=== PATIENT | male | born 1990 | race Caucasian/White ===

== ENCOUNTER 2016-08-30 03:37 | Emergency (ER) | payer OTHER ==
--- NOTE | 2016-08-30 04:34 | C.PDOC ---
History Of Present Illness 25 y/o male, with prior hx of sciatica,c/o right sided lower back pain since 6 pm on ; pain radiates to upper right thigh. pt sts he was at the gym earlier and did lower back exercises and heavy lifting, and this was his second day back at gym after some time. pt tried tylenol at home once or twice, with no improvement. denies any bladder or bowel dysfunction, no saddle anesthesia, no weakness, numbness or tingling. denies abdominal pain. nausea. vomiting, fever. chills. Time Seen by Provider: 08/30/16 03:55 Chief Complaint (Nursing): Back Pain History Per: Patient History/Exam Limitations: no limitations Onset/Duration Of Symptoms: Hrs (1), Days Current Symptoms Are (Timing): Worse Quality Of Discomfort: "Pain" Severity: Severe Pain Scale Rating Of: 8 Previous Symptoms: Back Pain Associated Symptoms: denies: Incontinence, New Weakness, New Numbness Exacerbating Factor(s): Turning, Movement, Sitting, Standing Recent travel outside of the [place]: No Past Medical History Reviewed: Historical Data, Nursing Documentation, Vital Signs Vital Signs: Last Vital Signs Temp 98 F 08/30/16 03:45 Pulse 84 08/30/16 03:45 Resp 20 08/30/16 03:45 BP 148/80 08/30/16 03:45 Pulse Ox 97 08/30/16 06:08 - Medical History PMH: Gastritis Denies: Chronic Kidney Disease Surgical History: Appendectomy - [facility] Procedures GROUP PSYCHOTHERAPY (02/08/16) Family History: States: Unknown Family Hx - Social History Hx Tobacco Use: Yes (heavy smoker) Hx Alcohol Use: No Hx Substance Use: No - Immunization History Hx Tetanus Toxoid Vaccination: No Hx Influenza Vaccination: No Hx Pneumococcal Vaccination: No Review Of Systems Constitutional: Negative for: Fever, Chills Cardiovascular: Negative for: Chest Pain, Palpitations Respiratory: Negative for: Cough, Shortness of Breath Gastrointestinal: Negative for: Vomiting, Abdominal Pain Genitourinary: Negative for: Dysuria, Frequency, Incontinence Skin: Negative for: Rash Neurological: Negative for: Weakness, Numbness Physical Exam - Physical Exam Appears: Non-toxic, Other (uncomfortable) Skin: Warm, Dry Head: Atraumatic, Normacephalic Neck: Normal ROM Chest: Symmetrical, No Tenderness Cardiovascular: Rhythm Regular, No Murmur Gastrointestinal/Abdominal: Bowel Sounds, Soft, No Tenderness Rectal: Deferred Back: Normal Inspection, No CVA Tenderness, No Vertebral Tenderness, Decreased ROM, Muscle Spasm (right paraspinal), Paraspinal Tenderness (right lumbar area) , Straight Leg Raising (right) Extremity: Normal ROM, No Tenderness, No Pedal Edema, No Calf Tenderness Pulses: Left Dorsalis Pedis: Normal, Right Dorsalis Pedis: Normal Neurological/Psych: Oriented x3, Normal Speech, Normal Cognition, Normal Cranial Nerves, Normal Motor, Normal Sensation ED Course And Treatment O2 Sat by Pulse Oximetry: 97 Pulse Ox Interpretation: Normal Progress Note: pt still with significant pain after toradol and flexeril. pt able to get out of bed and ambulate. percocet ordered. Reevaluation Time: 04:54 (mildly improved) Medical Decision Making Medical Decision Making: pt with right with lower back pain., with palpable spasm in right lumbar area; will tx with toradol, muscle relaxant and re-evaluate. 500 a, pt still with pain, though walking around ED now. on arrival. pt lay flat on his back and was too uncomfortable to move. percocet ordered. 530 am: pt lying in left lateral decubitus position, knees flexed, appears much more comfortable. will d/c with nsaids and muscle relaxants with clinic f/u. pt reports he is no longer taking psychiatric medications. denies hi, si and ah. Disposition Counseled Patient/Family Regarding: Diagnosis, Need For Followup, Rx Given - Disposition Referrals: [facility] [Outside] [facility] [Outside] Disposition: HOME/ ROUTINE Disposition Time: 05:55 Condition: IMPROVED Additional Instructions: Follow up in medical clinic in next few days. Take medications as prescribed. The muscle relaxants will make you sleepy, so no driving or operating vehicles. Return to ER for any worsening symptoms, Try hot or cold compresses to affected area several times a day. Prescriptions: Cyclobenzaprine [Cyclobenzaprine HCl] 10 mg PO Q8 #9 tab Naproxen 500 mg PO BID #20 tab Instructions: Back Pain (GEN), Back Exercises (ED) Forms: Gen Discharge Inst Wallisian - Clinical Impression Clinical Impression: Sciatica, Muscle spasm of back
[2016-08-30 04:40] VITALS: PULSE 84; RESP 20
[2016-08-30] MEDS ORDERED: Oxycodone/Acetaminophen 5/325 mg Tab PO STA (04:52)
[2016-08-30] MEDS ORDERED: Oxycodone/Acetaminophen 5/325 mg Tab ONE (04:54)
[2016-08-30 06:35] VITALS: BP 136/74; TEMP 97.6; O2SAT 98
== END 2016-08-30 06:33 | disposition home or self-care (01) ==
LOC: C.ER 03:37
DX: M54.41 Lumbago with sciatica, right side (principal); M62.830 Muscle spasm of back
CPT/HCPCS: 96372; 99283; J1885

== ENCOUNTER 2017-01-03 13:56 | Emergency (ER) | payer OTHER ==
[2017-01-03 14:07] VITALS: RESP 18
--- NOTE | 2017-01-03 14:21 | C.PDOC ---
History Of Present Illness 26 Y/O MALE C/O INTERMITTENT EPIGASTRIC PAIN FOR 1 WEEK. REPORTS PAIN HAS BEEN PERSISTENT FOR 3 DAYS. ALSO C/O OCCASIONAL RADIATION OF PAIN TO MID-CHEST AREA. WORSE WHEN EATING. DESCRIBED "BURNING, ACID FEELING". DENIES FEVER, NAUSEA, VOMITING. REPORTS PAST SURGICAL HISTORY: APPENDECTOMY. EXAM NEG Time Seen by Provider: 01/03/17 14:14 Chief Complaint (Nursing): Abdominal Pain History Per: Patient History/Exam Limitations: no limitations Onset/Duration Of Symptoms: Days, Intermittent Episodes Current Symptoms Are (Timing): Still Present Location Of Pain/Discomfort: Epigastric Radiation Of Pain To:: Chest Quality Of Discomfort: Burning, Other ("ACID") Associated Symptoms: denies: Fever, Nausea, Vomiting, Diarrhea Recent travel outside of the [place]: No Past Medical History Reviewed: Historical Data, Nursing Documentation, Vital Signs Vital Signs: Last Vital Signs Temp 98.6 F 01/03/17 14:03 Pulse 88 01/03/17 14:03 Resp 18 01/03/17 14:03 BP 141/92 H 01/03/17 14:03 Pulse Ox 98 01/03/17 14:28 - Medical History PMH: Gastritis Surgical History: Appendectomy - [facility] Procedures GROUP PSYCHOTHERAPY (02/08/16) Family History: States: Unknown Family Hx - Social History Hx Tobacco Use: Yes (heavy smoker) Hx Alcohol Use: No Hx Substance Use: No - Immunization History Hx Tetanus Toxoid Vaccination: No Hx Influenza Vaccination: No Hx Pneumococcal Vaccination: No Review Of Systems Except As Marked, All Systems Reviewed And Found Negative. Constitutional: Negative for: Fever, Chills Cardiovascular: Negative for: Chest Pain Respiratory: Negative for: Cough, Shortness of Breath, Wheezing Gastrointestinal: Positive for: Abdominal Pain. Negative for: Nausea, Vomiting , Diarrhea Skin: Negative for: Rash Neurological: Negative for: Weakness, Numbness Physical Exam - Physical Exam Appears: Non-toxic, No Acute Distress Skin: Normal Color, Warm, Dry Head: Atraumatic, Normacephalic Oral Mucosa: Moist Chest: Symmetrical, No Tenderness Cardiovascular: Rhythm Regular Respiratory: Normal Breath Sounds, No Accessory Muscle Use, No Rales, No Rhonchi , No Wheezing Gastrointestinal/Abdominal: Soft, No Tenderness, No Distention, No Guarding, No Rebound Back: Normal Inspection Extremity: Normal ROM, Capillary Refill (< 2 SEC.) Neurological/Psych: Oriented x3, Normal Speech, Normal Cognition ED Course And Treatment - Laboratory Results Result Diagrams: 01/03/17 14:38 01/03/17 14:38 O2 Sat by Pulse Oximetry: 98 (RA) Pulse Ox Interpretation: Normal Progress - Re-Evaluation Re-evaluation Note: 01/03/17 14:22 MAALOX, , PEPCID, PROTONIX. LABS ORDERED. 01/03/17 15:07 LABS NEG. SX IMPROVE. NO S/S ACUTE ABD. ADVISED NEED FOR GI/PMD FU - Data Reviewed Data Reviewed: Lab, Old records Disposition Counseled Patient/Family Regarding: Studies Performed, Diagnosis, Need For Followup, Rx Given - Disposition Referrals: [facility] [Outside] [facility] [Outside] Karlo Chang MD [Staff Provider] - Disposition: HOME/ ROUTINE Disposition Time: 15:08 Condition: IMPROVED Prescriptions: Famotidine [Pepcid AC] 10 mg PO QN #30 tablet Omeprazole Magnesium [Prilosec Otc] 20 mg PO QN #30 tablet. Instructions: Gas and Bloating (ED) Forms: [facility] (Kazakh), Work Excuse - Clinical Impression Clinical Impression: Abdominal colic - Scribe Statement The provider has reviewed the documentation as recorded by the Scribe SM All medical record entries made by the Scribe were at my direction and personally dictated by me. I have reviewed the chart and agree that the record accurately reflects my personal performance of the history, physical exam, medical decision making, and the department course for this patient. I have also personally directed, reviewed, and agree with the discharge instructions and disposition.
[2017-01-03] MEDS ORDERED: Aluminum Hydroxide/Magnesium Hydroxide Susp (30 mL) PO STA (14:22)
[2017-01-03] MEDS ORDERED: Belladonna-Phenobarbital PO STA (14:22)
[2017-01-03] MEDS ORDERED: Aluminum Hydroxide/Magnesium Hydroxide Susp (30 mL) ONE (14:28)
[2017-01-03] MEDS ORDERED: Belladonna-Phenobarbital ONE (14:28)
[2017-01-03 14:43] LABS: BASO # 0.1 K/uL (0.0-0.2); BASO % 0.7 % (0.0-2.0); EOS # 0.1 K/uL (0.0-0.7); EOS % 0.7 % (0.0-4.0); HEMATOCRIT 40.6 % (35.0-51.0); LYMPH # 2.7 K/uL (1.0-4.3); LYMPH % 23.9 % (20.0-40.0); MEAN CELL VOLUME 75.8 fL (80.0-94.0); MEAN CORPUSCULAR HEMOGLOBIN 25.1 pg (27.0-31.0); MEAN CORPUSCULAR HGB CONC 33.2 g/dL (33.0-37.0); MEAN PLATELET VOLUME 8.5 fL (7.2-11.7); MONO # 0.9 K/uL (0.0-0.8); MONO % 8.5 % (0.0-10.0); RED CELL DISTRIBUTION WIDTH 14.3 % (11.5-14.5); WHITE BLOOD COUNT 11.1 K/uL (4.8-10.8)
[2017-01-03 14:54] LABS: CHLORIDE 103 mmol/L (98-107); SODIUM 140 mmol/L (132-148)
[2017-01-03 14:56] LABS: GFR AFRICAN-AMERICAN > 60
[2017-01-03 14:57] LABS: ALB/GLOB RATIO 1.5 (1.0-2.1); ALKALINE PHOSPHATASE 72 U/L (38-126); ALT/SGPT 44 U/L (21-72); AST/SGOT 28 U/L (17-59); BILIRUBIN,TOTAL 0.4 mg/dL (0.2-1.3); BLOOD UREA NITROGEN 6 mg/dL (9-20); CALCIUM 9.2 mg/dl (8.6-10.4); CARBON DIOXIDE 25 mmol/L (22-30); GLUCOSE,RANDOM 79 mg/dL (75-110); TOTAL PROTEIN 7.3 g/dL (6.3-8.3)
[2017-01-03 15:32] VITALS: BP 120/75; PULSE 77; TEMP 98.4; O2SAT 97
== END 2017-01-03 15:33 | disposition home or self-care (01) ==
LOC: C.ER 13:56
DX: R10.84 Generalized abdominal pain (principal)
CPT/HCPCS: 80053; 83690; 85025; 96374; 96375; 99284; C9113